=== PATIENT | female | born 1960 | race Caucasian/White ===

== ENCOUNTER 2016-05-07 11:43 | Emergency (ER) | payer OTHER ==
[~2016-05-07] VITALS: Ht 165.1 cm; Wt 68.0 kg
[~2016-05-07 11:43] MED LIST: HYDR-3533 PO; IMIT50TA PO; METH750T2 PO
[2016-05-07 12:06] VITALS: BP 143/97; PULSE 93; RESP 18; TEMP 98.1; O2SAT 96
--- NOTE | 2016-05-07 13:12 | RADHPO ---
EXAM DATE/TIME: 05/07/2016 12:43 [facility] COMPARISON: No previous studies available for comparison. INDICATIONS : Left hand pain after fall. MEDICAL HISTORY : None. SURGICAL HISTORY : None. ENCOUNTER: Initial ACUITY: 2 days PAIN SCORE: 8/10 LOCATION: Left lateral hand FINDINGS: Three view examination of the left hand demonstrates no soft tissue swelling, dislocation, or fractur e. The carpal bones appear intact. The interphalangeal and metacarpophalangeal joints are intact. Bony mineralization is normal. CONCLUSION: No acute fracture or joint dislocation. Phillip Plummer MD on May 07, 2016 at 13:09 Board Certified Radiologist. This report was verified electronically.
--- NOTE | 2016-05-07 13:13 | RADHPO ---
EXAM DATE/TIME: 05/07/2016 12:51 [facility] COMPARISON: No previous studies available for comparison. INDICATIONS : Neck pain after fall. MEDICAL HISTORY : None. SURGICAL HISTORY : None. ENCOUNTER: Initial ACUITY: 2 days PAIN SCORE: 7/10 LOCATION: posterior cervical spine FINDINGS: Two projection examination was performed. There is normal alignment and curvature of the vertebral b odies down to the level of C7. No evidence of fracture or subluxation. Vertebral body height is dean ntained.primary bony degenerative changes with disc degeneration and disc space narrowing at C5-6 and C6-7. The prevertebral soft tissues are of normal thickness. The atlanto-axial articulation is inta ct. CONCLUSION: Primary degenerative changes at C5-6 and C6-7. No acute bony fracture. Phillip Plummer MD on May 07, 2016 at 13:11 Board Certified Radiologist. This report was verified electronically.
--- NOTE | 2016-05-07 13:16 | RADHPO ---
EXAM DATE/TIME: 05/07/2016 12:54 [facility] COMPARISON: No previous studies available for comparison. INDICATIONS : Low back pain after fall after fall. MEDICAL HISTORY : None. SURGICAL HISTORY : None. ENCOUNTER: Initial ACUITY: 2 days PAIN SCORE: 7/10 LOCATION: Lumbar spine FINDINGS: Two view examination was performed. There are four non-rib bearing vertebral bodies. The vertebral bodies are in normal alignment without evidence of subluxation or scoliosis. There is disc space narr owing at L5-S1 (last disc space level). Mild primary bony degenerative changes. The pedicles are inta ct. Bony mineralization is normal. No fracture is identified. There is some degenerative changes of the lower thoracic spine. CONCLUSION: Mild degenerative changes of the lumbar spine. Mild disc space narrowing at L5-S1. No acute bony frac ture. Phillip Plummer MD on May 07, 2016 at 13:13 Board Certified Radiologist. This report was verified electronically.
[2016-05-07] MEDS ORDERED: IMIT25TA PO (14:40)
[2016-05-07] MEDS ORDERED: CYCL1TAB29 PO (14:45)
[2016-05-07] MEDS ORDERED: IBUP800T23 PO (14:45)
[2016-05-07] MEDS ORDERED: ZOFR4TAB3 SL (14:47)
--- NOTE | 2016-05-07 14:48 | PD ---
HPI Chief Complaint: Fall Time Seen by Provider: 14:35 Travel History International Travel<30 days: No Contact w/Intl Traveler<30days: No Traveled to known affect area: No History of Present Illness HPI Patient is a 56-year-old female presenting to emergency for evaluation of neck and back pain after she sustained a mechanical fall at work 2 days ago. Patient denies any numbness, tingling, weakness in her extremities. She further denies any bladder or bowel incontinence. She denies any chest pain, shortness of breath, abdominal pain. She does report a dull headache and feeling dizzy occasionally. She has not taken anything or the pain. Patient's past medical history is significant for migraines. She is not on any blood thinners. She reports her pain a 5/10, states it feels tight PFSH Past Medical History Cardiovascular Problems: No Gastrointestinal Disorders: No Genitourinary: No Immune Disorder: No Musculoskeletal: No Psychiatric: No Reproductive: No Respiratory: No Integumentary: Yes (ROSCEA) Migraines: Yes ?: Not : 1 Para: 0 Miscarriage: 1 Past Surgical History Hysterectomy: Yes (PARTIAL) Tonsillectomy: Yes Social History Alcohol Use: No Tobacco Use: No Substance Use: No Allergies-Medications (Allergen,Severity, Reaction): Coded Allergies: Darvocet-N 100 (Verified Allergy, Severe, VOMITING, VERTIGO, 05/07/16) Tetracycline (Verified Allergy, Severe, NAUSEA, DIZZINESS, SWEATS, 05/07/16 ) Chocolate (Verified Allergy, Unknown, 05/07/16) MIGRAINE Reported Meds & Prescriptions Reported Meds & Active Scripts Active Robaxin (Methocarbamol) 750 Mg Tab 750 Mg PO Q8 PRN Lortab 5 mg/325 mg (Hydrocodone/Acetaminophen 5 mg/325 mg) 1 Tab 1 Tab PO Q6H PRN Reported Imitrex (Sumatriptan Succinate) Unknown Strength Tab Unknown Dose PO DAILY PRN Physical Exam Narrative GENERAL: Developed, well nourished, alert female. Resting comfortably in no acute distress. SKIN: Warm and dry. HEAD: Atraumatic. Normocephalic. EYES: Pupils equal and round. No scleral icterus. No injection or drainage. Extraocular movements are intact ENT: No nasal bleeding or discharge. Mucous membranes pink and moist. NECK: Trachea midline. No JVD. CARDIOVASCULAR: Regular rate and rhythm. No murmur appreciated. RESPIRATORY: No accessory muscle use. Clear to auscultation. Breath sounds equal bilaterally. GASTROINTESTINAL: Abdomen soft, non-tender, nondistended. Hepatic and splenic margins not palpable. MUSCULOSKELETAL: No obvious deformities. No clubbing. No cyanosis. No edema. Tenderness palpation paraspinal musculature in the lumbar and lower thoracic region. 5/5 muscle strength in all 4 extremities, no spinal tenderness noted. No step-off. Mild edema and ecchymosis noted to the left fourth fingertip from the DIP joint distally. NEUROLOGICAL: Awake and alert. No obvious cranial nerve deficits. Motor grossly within normal limits. Normal speech. PSYCHIATRIC: Appropriate mood and affect; insight and judgment normal. Data Data Last Documented VS Vital Signs Date Time Temp Pulse Resp B/P Pulse Ox O2 Delivery O2 Flow Rate FiO2 05/07/16 12:06 98.1 93 18 143/97 96 Orders Spine, Lumbar - Ltd (Ap & Lat) (05/07/16 ) Spine, Cervical - Ltd (Ap&Lat) (05/07/16 ) Hand, Complete ([id number]) (05/07/16 ) [facility] Medical Decision Making Medical Screen Exam Complete: Yes Emergency Medical Condition: Yes Interpretation(s) Vital Signs Date Time Temp Pulse Resp B/P Pulse Ox O2 Delivery O2 Flow Rate FiO2 05/07/16 12:06 98.1 93 18 143/97 96 Differential Diagnosis Sprain versus strain versus spasm versus contusion versus concussion versus other Narrative Course Patient is a 56-year-old female presenting to the emergency department 2 days after mechanical fall in which. She denied any head injury or loss of consciousness but has symptoms consistent with a concussion. According to [place] C-spine rules imaging is not indicated at this time. Additionally patient is neurologically intact on exam. X-ray of the cervical, lumbar spine as well as the left hand ordered due to complaint of pain. Imaging of the lumbar, cervical spine are negative for acute fracture, imaging of the left hand is negative for acute fracture or abnormality. Cervical spine x-ray shows degenerative changes at C5 to 6 and C6 to 7 Lumbar spine x-ray shows mild tender changes of the lumbar spine, mild disc space narrowing at L5 to S1. Patient is encouraged to follow-up with her primary doctor, alternate heat and ice the affected area, continue range of motion exercises. She is encouraged to take medications as needed and as directed on the she was advised that medications would help alleviate the pain with taking consistently for 24-48 hours. She was encouraged to avoid any exacerbating activities. Patient verbalized understanding of instructions. Patient is stable for discharge. Diagnosis Primary Impression: Fall Qualified Code: W19.XXXA - Fall, initial encounter Additional Impressions: Cervical paraspinous muscle spasm Lumbar paraspinal muscle spasm Concussion Qualified Code: S06.0X0A - Concussion, without loss of consciousness, initial encounter Referrals: Primary Care Physician Patient Instructions: Concussion (ED), General Instructions, Muscle Spasm (ED) , Muscle Strain (ED) Departure Forms: Tests/Procedures, Work Release Enter return to work date: May 10, 2016 Additional Instructions: Follow-up with your primary doctor Take medications as directed Return to emergency department for any new or worsening symptoms Apply warm moist heat to affected area, continue range of motion exercises, avoid exacerbating activities, avoid bed rest Avoid excessive TV watching, reading, use of computers to allow for mental rest. Med/Other Pt SpecificInfo: Prescription(s) given Scripts Ondansetron Odt (Zofran Odt)4 Mg Tab4 Mg SL Q6HR PRN (Nausea/Vomiting) 3 Days Ref 0 Prov:Laure Rosas 05/07/16 Cyclobenzaprine (Flexeril)10 Mg Tab10 Mg PO TID PRN (MUSCLE SPASM) 10 Days Ref 0 Prov:Laure Rosas 05/07/16 Ibuprofen 800 Mg Sfm027 Mg PO Q8H PRN (Pain/Inflammation) 10 Days Ref 0 Prov:Laure Rosas 05/07/16 Disposition: 01 DISCHARGE HOME Condition: Stable Laure Rosas May 07, 2016 14:48
== END 2016-05-07 14:54 | disposition home or self-care (01) ==
LOC: PHED 11:43 → PHEFT 14:54
DX: S06.0X0A Concussion without loss of consciousness, initial encounter (principal); M62.838 Other muscle spasm; W19.XXXA Unspecified fall, initial encounter; Y99.0 Civilian activity done for income or pay
CPT/HCPCS: 72040; 72100; 73130; 99284